=== PATIENT | male | born 1955 | race Caucasian/White ===

== ENCOUNTER 2016-07-25 14:40 | Inpatient (IN) ==
[2016-07-25] MEDS ORDERED: Benzonatate 100 MG CAPSULE PO PRN (17:43)
[2016-07-25] MEDS ORDERED: Ondansetron ODT 4 MG TAB.RAPDIS SL PRN (17:43)
[2016-07-25] MEDS ORDERED: D5% in Water 1,000 ML IV PRN (17:48)
[2016-07-25] MEDS ORDERED: *HR* Dextrose 50 % in Water (Syg) 50 ML SYRINGE IVP PRN (17:48)
[2016-07-25] MEDS ORDERED: Dextrose Gel 15 GM PO PRN ×2 (17:48)
[2016-07-25 18:40] LABS: BUN/Creatinine Ratio 13 (6-26); Blood Urea Nitrogen 27 mg/dL (8-26); INR 1.5; Prothrombin Time 15.8 Seconds (9.4-12.1); eGFR For African Americans 39 (> 60); eGFR For Non-African Americans 32 (> 60)
[2016-07-25] MEDS ORDERED: Insulin LISPRO 300 UNITS/3 ML VIAL SQ ONE (19:03)
[2016-07-25] MEDS: Insulin LISPRO 300 UNITS/3 ML VIAL SQ SCH (19:12)
[2016-07-25] MEDS: *HR* HYDROcodone/Acet 5/325 mg TABLET PO PRN (19:14)
[2016-07-25] MEDS: *HR* Warfarin 1 MG TABLET PO SCH (19:14)
[2016-07-25] MEDS ORDERED: Insulin DETEMIR 100 UNIT/ML per UNIT SQ ONE (21:00)
[2016-07-25] MEDS ORDERED: INSULIN DETEMIR 70 UNIT SQ SCH (21:00)
[2016-07-25] MEDS: Meropenem 1,000 MG in 0.9 % Sodium Chloride Mini Bag 100 ML IVPB SCH (22:10)
[2016-07-25] MEDS: *HR* Enoxaparin 150 MG/ML SYRINGE SQ SCH (22:11)
[2016-07-25] MEDS: Famotidine 20 MG TABLET PO SCH (22:12)
[2016-07-26] MEDS: *HR* HYDROcodone/Acet 5/325 mg TABLET PO PRN ×2 (00:47→06:48)
[2016-07-26 05:37] LABS: INR 1.5; Prothrombin Time 16.6 Seconds (9.4-12.1)
[2016-07-26 05:40] LABS: Activated Partial Thrombo Time 39.9 Seconds (26.0-36.0)
[2016-07-26] MEDS ORDERED: *HR* Enoxaparin 40 MG/0.4 ML SYRINGE SQ SCH (06:00)
[2016-07-26 06:34] LABS: Hematocrit 30.1 % (37.5-50.1); Hemoglobin 9.2 g/dL (12.9-16.9); Mean Corpuscular HGB Conc 30.6 g/dL (31.6-35.5); Mean Corpuscular Hemoglobin 27.8 pg (28.0-33.3); Mean Corpuscular Volume 90.9 fL (83.0-100.0); Nucleated Red Blood Cells 5.7 /100 WBC (0); Red Blood Count 3.31 M/mcL (4.19-5.50); Red Cell Distribution Width 22.5 % (11.5-14.5)
[2016-07-26] MEDS: Insulin LISPRO 300 UNITS/3 ML VIAL SQ SCH ×6 (08:13→17:24)
[2016-07-26] MEDS: *HR* Enoxaparin 150 MG/ML SYRINGE SQ SCH ×2 (08:14→21:03)
[2016-07-26] MEDS: Folic Acid 1 MG TABLET PO SCH (08:15)
[2016-07-26] MEDS: Vitamin B Complex/Vit C/Vit E 1 EACH TABLET PO SCH (08:16)
[2016-07-26] MEDS: Fenofibrate 54 MG TABLET PO SCH (08:16)
[2016-07-26] MEDS: Spironolactone 25 MG TABLET PO SCH (08:16)
[2016-07-26] MEDS: Furosemide 40 MG TABLET PO SCH ×2 (08:16→17:23)
[2016-07-26] MEDS: Famotidine 20 MG TABLET PO SCH ×2 (08:17→21:04)
[2016-07-26 08:19] LABS: Platelet Count 35 K/mcL (140-400)
[2016-07-26] MEDS: Meropenem 1,000 MG in 0.9 % Sodium Chloride Mini Bag 100 ML IVPB SCH ×2 (08:28→21:00)
[2016-07-26] MEDS: Insulin DETEMIR 100 UNIT/ML X5UNITS SQ SCH ×2 (08:29→21:03)
[2016-07-26] MEDS ORDERED: Lisinopril 20 MG TABLET PO SCH (09:00)
[2016-07-26 10:02] LABS: Anisocytosis 1+ (Not Present); Neutrophils # 3.6 K/mcL (1.6-8.9); Platelet Clumps Few (Not Present); Platelet Estimate Decreased (Normal); Poikilocytosis 1+ (Not Present)
[2016-07-26] MEDS: *HR* HYDROcodone/Acet 10/325 mg TABLET PO PRN ×2 (14:07→21:05)
[2016-07-26] MEDS: *HR* Warfarin 1 MG TABLET PO SCH (17:23)
[2016-07-26] MEDS ORDERED: Meropenem 1,000 MG in 0.9 % Sodium Chloride Mini Bag 100 ML IVPB SCH (20:00)
[2016-07-26] MEDS: (Doxepin Hcl [Doxepin Hcl] 10 MG) PO SCH (21:03)
--- NOTE | 2016-07-26 22:50 | Internal Med History&Physical ---
Date of Encounter: 07/26/16 Time of Encounter: 22:48 Assessment and Plan (1) Cellulitis Current visit: Yes Status: Chronic Patient will be admitted for IV antibiotics and to continue wound care management. Qualifiers: Site of cellulitis: extremity Site of cellulitis of extremity: lower extremity Laterality: unspecified laterality Qualified Code(s): L03.119 - Cellulitis of unspecified part of limb Internal Medicine - H&P: HPI Admitted From: Direct Admit Plans for Post Hospital Care: Home History of present illness: Mr. Mina is a 61 year old male sent from wound care clinic Patient was admitted for IV antibiotics, dressing removed today for routine dressing change of left posterior leg wound. Large amount of yellow drainage noted. Wound bed is dark red in color, cleansed with wound cleanser and dressed with gold dust to wound, covered with telfa, maxorb AG to the weeping areas of lateral and anterior left leg, wrapped with kerlix, large exudry to manage drainage, another kerlix wrap and secured with coban. Patient states leg is painful 8/10 with dressing changes only. Dressing of left leg is to be changed daily. Past Med Surg Social Fam HX - Past Medical History Medical history: cancer, diabetes, hypertension Psychiatric history: anxiety - Past Surgical History Surgical History: heart valve replacement, other - Social History Smoking Status: Never smoker Smokeless Tobacco Status: No Alcohol use: rarely Drug use: none - Family History Mother History Unknown: Yes Father History Unknown: Yes Internal Medicine - H&P: Meds Fenofibrate 145 mg PO DAILY 09/03/15 [History] Furosemide [Lasix] 40 mg PO DAILY #0 09/03/15 [History] Insulin DETEMIR [Levemir] 70 unit SQ BID 09/03/15 [History] Loratadine [Loratadine] 10 mg PO DAILY #0 09/03/15 [History] Metoprolol [Lopressor] 25 mg PO DAILY 09/03/15 [History] NovoLOG 20 units SQ TIDAC 09/03/15 [History] Pramipexole [Mirapex] 0.5 mg PO HS 09/03/15 [History] Ranitidine HCl [Zantac] 150 mg PO BID 09/03/15 [History] Tamsulosin HCl [Flomax] 0.4 mg PO DAILY 09/03/15 [History] Allopurinol [Zyloprim 100 MG] 100 mg PO DAILY 07/25/16 [History] B Complex with Vitamin C [[place] with C] 1 each PO DAILY 07/25/16 [History] Folic Acid 1 mg PO DAILY 07/25/16 [History] HYDROcodone/Acet 10/325 mg [[place] 10-325 mg] 1 tab PO Q4HR PRN 07/25/16 [History ] Spironolactone [Aldactone] 25 mg PO DAILY 07/25/16 [History] TraZODone [TraZODone] 50 mg PO HS PRN 07/25/16 [History] Warfarin [Coumadin] 1 mg PO 1800 07/25/16 [History] Aspirin 81 mg PO DAILY 07/26/16 [History] Cholecalciferol (D-3) [Vitamin D] 5,000 unit PO DAILY 07/26/16 [History] Doxepin HCl 10 mg PO HS 07/26/16 [History] Prochlorperazine Maleate 10 mg PO DAILY PRN 07/26/16 [History] Ranitidine HCl [Zantac] 300 mg PO DAILY 07/26/16 [History] Allergies levofloxacin [From Levaquin] Adverse Reaction (Verified 09/03/15 15:02) Diarrhea morphine Adverse Reaction (Verified 09/03/15 15:02) Headache All Systems PM: A 10-system review of systems was performed and is negative for pertinent findings except as documented above in the HPI. - Constitutional Constitutional: no chills, no fever(s) - Cardiovascular Cardiovascular ROS IM: no chest pain, no diaphoresis, no dyspnea, no lightheadedness, no palpitations, no syncope - Respiratory Respiratory: no cough, no dyspnea, no wheezing, no excessive phlegm production - Gastrointestinal Gastrointestinal: no abdominal pain, no diarrhea, no hematemesis, no hematochezia, no melena, no nausea, no vomiting - Musculoskeletal Musculoskeletal ROS IM: arthralgias - Integumentary Integumentary IM: erythema - Constitutional Vitals: Temp Pulse Resp BP Pulse Ox 97.6 F 100 16 94/60 97 07/26/16 18:30 07/26/16 18:30 07/26/16 18:30 07/26/16 18:30 07/26/16 18:30 General appearance: Present: A&O X 3, pleasant - Respiratory Respiratory exam: Present: CTAB. Absent: accessory muscle use, rales, rhonchi, wheezes - Cardiovascular Cardiovascular exam: Present: RRR, +S1, +S2. Absent: diastolic murmur, gallop, rubs, systolic murmur - GI/Abdominal GI/Abdominal exam: Present: normal bowel sounds, soft, no peritoneal signs. Absent: distended, tenderness - Expanded Lower Extremities Exam Foot/Toe exam: Present: erythema - Neurological Exam Neurological exam: Present: CN II-XII intact, oriented X3, no focal deficits. Absent: pronater drift, facial droop, speech deficit Internal Med - H&P Results - Labs CBC & Chem 7: 07/26/16 06:15 07/26/16 06:15 Labs: Short CBC 07/26/16 Range/Units 06:15 WBC 8.6 (4.3-11.1) K/mcL Hgb 9.2 L (12.9-16.9) g/dL Hct 30.1 L (37.5-50.1) % Plt Count 35 L (140-400) K/mcL Neutrophils # 3.6 (1.6-8.9) K/mcL BMP 07/26/16 06:15 Sodium 138 Potassium 4.0 Chloride 104 Carbon Dioxide 22 BUN 26 Creatinine 1.85 H Glucose 88 Calcium 9.0
[2016-07-27 05:44] LABS: INR 1.5; Prothrombin Time 16.4 Seconds (9.4-12.1)
[2016-07-27] MEDS: *HR* HYDROcodone/Acet 10/325 mg TABLET PO PRN ×3 (07:00→20:23)
[2016-07-27] MEDS: Loratadine 10 MG TABLET PO SCH (09:00)
[2016-07-27] MEDS: *HR* Enoxaparin 150 MG/ML SYRINGE SQ SCH ×2 (09:00→20:24)
[2016-07-27] MEDS: Fenofibrate 54 MG TABLET PO SCH (09:01)
[2016-07-27] MEDS: Famotidine 20 MG TABLET PO SCH ×2 (09:02→20:23)
[2016-07-27] MEDS: Spironolactone 25 MG TABLET PO SCH (09:02)
[2016-07-27] MEDS: Vitamin B Complex/Vit C/Vit E 1 EACH TABLET PO SCH (09:02)
[2016-07-27] MEDS: Furosemide 40 MG TABLET PO SCH ×2 (09:02→17:31)
[2016-07-27] MEDS: Folic Acid 1 MG TABLET PO SCH (09:02)
[2016-07-27] MEDS: Cholecalciferol (D-3) 1,000 UNIT TABLET PO SCH (09:02)
[2016-07-27] MEDS: Insulin LISPRO 300 UNITS/3 ML VIAL SQ SCH ×6 (09:03→17:32)
[2016-07-27] MEDS: Meropenem 1,000 MG in 0.9 % Sodium Chloride Mini Bag 100 ML IVPB SCH ×2 (09:04→20:22)
[2016-07-27] MEDS: Insulin DETEMIR 100 UNIT/ML X5UNITS SQ SCH ×2 (09:05→20:23)
--- NOTE | 2016-07-27 15:39 | Internal Med Progress Note ---
Date of Encounter: 07/27/16 Time of Encounter: 15:00 - Assessment and plan (1) Acute kidney injury superimposed on chronic kidney disease Current Visit: No Status: Acute (2) Acute deep venous thrombosis Current Visit: No Status: Acute Assessment and plan: This was diagnosed a while back patient has been treated for this up to this point. And has a venous stasis ulcer and new posterior. It grew 3 different organisms and he needs to be placed in because only IV antibiotics were taken of the problem Qualifiers: DVT location: lower extremity Affected thrombotic vein of extremity: femoral Laterality: left Qualified Code(s): I82.412 - Acute embolism and thrombosis of left femoral vein - Time Spent With Patient less than 15 minutes - Constitutional Vitals: Temp Pulse Resp BP Pulse Ox 98.9 F 97 18 106/64 97 07/27/16 07:39 07/27/16 07:39 07/27/16 07:39 07/27/16 07:39 07/27/16 07:39 General appearance: Present: A&O X 3, pleasant - Head Head exam: Present: atraumatic, normocephalic - Neck Neck exam general surgery: Present: supple, trachea midline. Absent: lymphadenopathy - Respiratory Respiratory exam: Present: CTAB. Absent: accessory muscle use, rales, rhonchi, wheezes - Cardiovascular Cardiovascular exam: Present: RRR, +S1, +S2. Absent: diastolic murmur, gallop, rubs, systolic murmur - GI/Abdominal GI/Abdominal exam: Present: normal bowel sounds, soft, no peritoneal signs. Absent: distended, tenderness Internal Medicine: Result - Labs CBC & Chem 7: 07/26/16 06:15 07/26/16 06:15 Labs: Some increase in creatinine as noted chronically. - ABG Interpretation ABG results: PT/INR, D-dimer PT 16.4 Seconds (9.4-12.1) H 07/27/16 05:38 Consult Discharge Plan - Plan Referrals: Kathrin Gutierrez MD [Primary Care Provider] -
[2016-07-27] MEDS: *HR* Warfarin 1 MG TABLET PO SCH (17:30)
[2016-07-27] MEDS: (Doxepin Hcl [Doxepin Hcl] 10 MG) PO SCH (20:23)
[2016-07-28 05:57] LABS: INR 1.4; Prothrombin Time 15.1 Seconds (9.4-12.1)
[2016-07-28] MEDS: *HR* HYDROcodone/Acet 10/325 mg TABLET PO PRN ×3 (08:29→17:39)
[2016-07-28] MEDS: Fenofibrate 54 MG TABLET PO SCH (08:30)
[2016-07-28] MEDS: Furosemide 40 MG TABLET PO SCH ×2 (08:31→16:52)
[2016-07-28] MEDS: Spironolactone 25 MG TABLET PO SCH (08:31)
[2016-07-28] MEDS: Folic Acid 1 MG TABLET PO SCH (08:31)
[2016-07-28] MEDS: Famotidine 20 MG TABLET PO SCH ×2 (08:32→21:34)
[2016-07-28] MEDS: Loratadine 10 MG TABLET PO SCH (08:32)
[2016-07-28] MEDS: Vitamin B Complex/Vit C/Vit E 1 EACH TABLET PO SCH (08:32)
[2016-07-28] MEDS: Insulin LISPRO 300 UNITS/3 ML VIAL SQ SCH ×6 (08:32→16:52)
[2016-07-28] MEDS: Cholecalciferol (D-3) 1,000 UNIT TABLET PO SCH (08:32)
[2016-07-28] MEDS: Meropenem 1,000 MG in 0.9 % Sodium Chloride Mini Bag 100 ML IVPB SCH ×2 (08:33→21:34)
[2016-07-28] MEDS: *HR* Enoxaparin 150 MG/ML SYRINGE SQ SCH ×2 (08:34→21:33)
[2016-07-28] MEDS: Insulin DETEMIR 100 UNIT/ML X5UNITS SQ SCH ×2 (09:13→21:32)
--- NOTE | 2016-07-28 14:29 | Internal Med Progress Note ---
Date of Encounter: 07/28/16 Time of Encounter: 14:00 - Assessment and plan (1) Acute kidney injury superimposed on chronic kidney disease Current Visit: No Status: Acute Assessment and plan: This seems stable at the moment (2) Acute deep venous thrombosis Current Visit: No Status: Acute Assessment and plan: History of DVT noted Qualifiers: DVT location: lower extremity Affected thrombotic vein of extremity: femoral Laterality: left Qualified Code(s): I82.412 - Acute embolism and thrombosis of left femoral vein (3) Venous stasis dermatitis of left lower extremity Current Visit: Yes Status: Acute Assessment and plan: Currently undergoing treatment by wound care and IV antibiotics. Progressing very nicely and the wound is now fairly superficial along with some cellulitis in topical loss of dermis - Time Spent With Patient less than 15 minutes - Subjective Interval history: The patient has no complaints leg is responding to therapy. - Constitutional Vitals: Temp Pulse Resp BP Pulse Ox 98.0 F 91 16 103/53 94 L 07/28/16 11:49 07/28/16 11:49 07/28/16 11:49 07/28/16 11:49 07/28/16 11:49 General appearance: Present: A&O X 3, pleasant - Head Head exam: Present: atraumatic, normal inspection, normocephalic - Neck Neck exam general surgery: Present: supple, trachea midline. Absent: lymphadenopathy - Respiratory Respiratory exam: Present: CTAB. Absent: accessory muscle use, rales, rhonchi, wheezes - Cardiovascular Cardiovascular exam: Present: RRR, +S1, +S2. Absent: diastolic murmur, gallop, rubs, systolic murmur Internal Medicine: Result - Labs CBC & Chem 7: 07/26/16 06:15 07/26/16 06:15 Labs: Lab looks good some chronic renal failure - ABG Interpretation ABG results: PT/INR, D-dimer PT 15.1 Seconds (9.4-12.1) H 07/28/16 05:15 Consult Discharge Plan - Plan Referrals: Kathrin Gutierrez MD [Primary Care Provider] -
[2016-07-28] MEDS ORDERED: *HR* Warfarin 1 MG TABLET PO SCH (18:00)
[2016-07-28] MEDS: (Doxepin Hcl [Doxepin Hcl] 10 MG) PO SCH (21:32)
[2016-07-29] MEDS: *HR* HYDROcodone/Acet 10/325 mg TABLET PO PRN ×4 (04:40→22:13)
[2016-07-29 06:25] LABS: INR 1.4; Prothrombin Time 15.3 Seconds (9.4-12.1)
[2016-07-29] MEDS: Cholecalciferol (D-3) 1,000 UNIT TABLET PO SCH (08:50)
[2016-07-29] MEDS: Loratadine 10 MG TABLET PO SCH (08:51)
[2016-07-29] MEDS: Famotidine 20 MG TABLET PO SCH ×2 (08:51→20:48)
[2016-07-29] MEDS: Vitamin B Complex/Vit C/Vit E 1 EACH TABLET PO SCH (08:51)
[2016-07-29] MEDS: Folic Acid 1 MG TABLET PO SCH (08:51)
[2016-07-29] MEDS: Fenofibrate 54 MG TABLET PO SCH (08:51)
[2016-07-29] MEDS: Spironolactone 25 MG TABLET PO SCH (08:51)
[2016-07-29] MEDS: Insulin DETEMIR 100 UNIT/ML X5UNITS SQ SCH ×2 (08:52→20:50)
[2016-07-29] MEDS: *HR* Enoxaparin 150 MG/ML SYRINGE SQ SCH ×2 (08:52→20:50)
[2016-07-29] MEDS: Insulin LISPRO 300 UNITS/3 ML VIAL SQ SCH ×6 (08:52→17:27)
[2016-07-29] MEDS: Furosemide 40 MG TABLET PO SCH ×2 (08:52→17:29)
[2016-07-29] MEDS: Meropenem 1,000 MG in 0.9 % Sodium Chloride Mini Bag 100 ML IVPB SCH ×2 (08:53→20:51)
--- NOTE | 2016-07-29 14:32 | Internal Med Progress Note ---
Date of Encounter: 07/29/16 Time of Encounter: 15:00 - Assessment and plan (1) Acute kidney injury superimposed on chronic kidney disease Current Visit: No Status: Acute Assessment and plan: This is just an additional chronic problem (2) Acute deep venous thrombosis Current Visit: No Status: Acute Assessment and plan: History of DVT Qualifiers: DVT location: lower extremity Affected thrombotic vein of extremity: femoral Laterality: left Qualified Code(s): I82.412 - Acute embolism and thrombosis of left femoral vein (3) Venous stasis dermatitis of left lower extremity Current Visit: Yes Status: Acute Assessment and plan: Patient's being seen by wound care and that is why he is here for multiple causative organisms and therefore IV antibiotics were indicated - Time Spent With Patient less than 15 minutes - Subjective Interval history: The patient has no complaints leg is responding to therapy. Will continue IV antibiotic therapy for the weekend. - Constitutional Vitals: Temp Pulse Resp BP Pulse Ox 97.0 F L 92 18 97/67 96 07/29/16 06:00 07/29/16 06:00 07/29/16 06:00 07/29/16 06:00 07/29/16 06:00 General appearance: Present: A&O X 3, pleasant, answers questions appropriately - Head Head exam: Present: atraumatic, normal inspection, normocephalic - Neck Neck exam general surgery: Present: supple, trachea midline. Absent: lymphadenopathy - Respiratory Respiratory exam: Present: CTAB. Absent: accessory muscle use, rales, rhonchi, wheezes - Cardiovascular Cardiovascular exam: Present: RRR, +S1, +S2. Absent: diastolic murmur, gallop, rubs, systolic murmur Internal Medicine: Result - Labs CBC & Chem 7: 07/26/16 06:15 07/26/16 06:15 Labs: Lab looks good - ABG Interpretation ABG results: PT/INR, D-dimer PT 15.3 Seconds (9.4-12.1) H 07/29/16 06:00 Consult Discharge Plan - Plan Referrals: Kathrin Gutierrez MD [Primary Care Provider] -
[2016-07-29] MEDS: *HR* Warfarin 2 MG TABLET PO SCH (17:29)
[2016-07-29] MEDS: (Doxepin Hcl [Doxepin Hcl] 10 MG) PO SCH (20:58)
[2016-07-30] MEDS: *HR* HYDROcodone/Acet 10/325 mg TABLET PO PRN ×2 (05:35→09:44)
[2016-07-30 05:46] LABS: INR 1.5; Prothrombin Time 16.1 Seconds (9.4-12.1)
[2016-07-30] MEDS: Insulin LISPRO 300 UNITS/3 ML VIAL SQ SCH ×6 (09:36→17:46)
[2016-07-30] MEDS: Meropenem 1,000 MG in 0.9 % Sodium Chloride Mini Bag 100 ML IVPB SCH ×2 (09:42→21:23)
[2016-07-30] MEDS: Insulin DETEMIR 100 UNIT/ML X5UNITS SQ SCH ×2 (09:43→21:21)
[2016-07-30] MEDS: Famotidine 20 MG TABLET PO SCH ×2 (09:44→21:22)
[2016-07-30] MEDS: Vitamin B Complex/Vit C/Vit E 1 EACH TABLET PO SCH (09:44)
[2016-07-30] MEDS: Spironolactone 25 MG TABLET PO SCH (09:44)
[2016-07-30] MEDS: Cholecalciferol (D-3) 1,000 UNIT TABLET PO SCH (09:44)
[2016-07-30] MEDS: *HR* Enoxaparin 150 MG/ML SYRINGE SQ SCH ×2 (09:45→21:21)
[2016-07-30] MEDS: Folic Acid 1 MG TABLET PO SCH (09:45)
[2016-07-30] MEDS: Fenofibrate 54 MG TABLET PO SCH (09:45)
[2016-07-30] MEDS: Loratadine 10 MG TABLET PO SCH (09:47)
[2016-07-30] MEDS: Furosemide 40 MG TABLET PO SCH ×2 (09:48→17:42)
--- NOTE | 2016-07-30 13:10 | Internal Med Progress Note ---
Date of Encounter: 07/30/16 Time of Encounter: 12:00 - Assessment and plan (1) Acute kidney injury superimposed on chronic kidney disease Current Visit: No Status: Acute Assessment and plan: Noted no acute change (2) Acute deep venous thrombosis Current Visit: No Status: Acute Assessment and plan: By history Qualifiers: DVT location: lower extremity Affected thrombotic vein of extremity: femoral Laterality: left Qualified Code(s): I82.412 - Acute embolism and thrombosis of left femoral vein (3) Venous stasis dermatitis of left lower extremity Current Visit: Yes Status: Acute Assessment and plan: Main reason for admission and treatment. Patient had need for IV antibiotics - Subjective Interval history: Doing well the goal will be Monday to check the wound wound we do the dressing change and discharge home if satisfactory. Patient has only complaint is Achy All over and He Has Pain Meds Were Ordered for That. - Constitutional Vitals: Temp Pulse Resp BP Pulse Ox 99.3 F 107 18 106/63 92 L 07/29/16 19:00 07/29/16 19:00 07/29/16 06:00 07/29/16 19:00 07/29/16 19:00 General appearance: Present: A&O X 3, pleasant, answers questions appropriately - Head Head exam: Present: atraumatic, normal inspection, normocephalic - Neck Neck exam general surgery: Present: supple, trachea midline. Absent: lymphadenopathy - Respiratory Respiratory exam: Present: CTAB. Absent: accessory muscle use, rales, rhonchi, wheezes - Cardiovascular Cardiovascular exam: Present: RRR, +S1, +S2. Absent: diastolic murmur, gallop, rubs, systolic murmur Internal Medicine: Result - Labs CBC & Chem 7: 07/26/16 06:15 07/26/16 06:15 Labs: Other than some chronic creatinine elevation lab is stable - ABG Interpretation ABG results: PT/INR, D-dimer PT 16.1 Seconds (9.4-12.1) H 07/30/16 05:25 Consult Discharge Plan - Plan Referrals: Kathrin Gutierrez MD [Primary Care Provider] -
[2016-07-30] MEDS: *HR* HYDROcodone/Acet 5/325 mg TABLET PO PRN ×2 (14:29→21:24)
[2016-07-30] MEDS: *HR* Warfarin 2 MG TABLET PO SCH (17:42)
[2016-07-30] MEDS: (Doxepin Hcl [Doxepin Hcl] 10 MG) PO SCH (21:22)
[2016-07-31] MEDS: *HR* HYDROcodone/Acet 5/325 mg TABLET PO PRN ×2 (05:48→18:02)
[2016-07-31 05:49] LABS: INR 1.5; Prothrombin Time 16.2 Seconds (9.4-12.1)
[2016-07-31] MEDS: Insulin LISPRO 300 UNITS/3 ML VIAL SQ SCH ×6 (09:26→17:06)
[2016-07-31] MEDS: Furosemide 40 MG TABLET PO SCH ×2 (09:26→18:02)
[2016-07-31] MEDS: Meropenem 1,000 MG in 0.9 % Sodium Chloride Mini Bag 100 ML IVPB SCH ×2 (09:26→22:17)
[2016-07-31] MEDS: Spironolactone 25 MG TABLET PO SCH (09:27)
[2016-07-31] MEDS: Insulin DETEMIR 100 UNIT/ML X5UNITS SQ SCH ×2 (09:27→22:14)
[2016-07-31] MEDS: Loratadine 10 MG TABLET PO SCH (09:27)
[2016-07-31] MEDS: Folic Acid 1 MG TABLET PO SCH (09:27)
[2016-07-31] MEDS: *HR* Enoxaparin 150 MG/ML SYRINGE SQ SCH ×2 (09:28→22:14)
[2016-07-31] MEDS: Vitamin B Complex/Vit C/Vit E 1 EACH TABLET PO SCH (09:28)
[2016-07-31] MEDS: Famotidine 20 MG TABLET PO SCH ×2 (09:28→22:16)
[2016-07-31] MEDS: Cholecalciferol (D-3) 1,000 UNIT TABLET PO SCH (09:28)
[2016-07-31] MEDS: Fenofibrate 54 MG TABLET PO SCH (09:28)
--- NOTE | 2016-07-31 12:56 | Internal Med Progress Note ---
Date of Encounter: 07/31/16 Time of Encounter: 12:00 - Assessment and plan (1) Acute kidney injury superimposed on chronic kidney disease Current Visit: No Status: Acute Assessment and plan: He had this is stable (2) Acute deep venous thrombosis Current Visit: No Status: Acute Assessment and plan: By history Qualifiers: DVT location: lower extremity Affected thrombotic vein of extremity: femoral Laterality: left Qualified Code(s): I82.412 - Acute embolism and thrombosis of left femoral vein (3) Venous stasis dermatitis of left lower extremity Current Visit: Yes Status: Acute Assessment and plan: Primary reason patient is here. 30 organisms were cultured and IV antibiotics were needed - Time Spent With Patient less than 15 minutes - Subjective Interval history: Care nurses and I will check the wound tomorrow and if it is satisfactory be discharged home. - Constitutional Vitals: Temp Pulse Resp BP Pulse Ox 98.5 F 91 16 124/68 98 07/30/16 19:25 07/30/16 19:25 07/30/16 19:25 07/30/16 19:25 07/30/16 19:25 General appearance: Present: A&O X 3, pleasant, answers questions appropriately - Head Head exam: Present: atraumatic, normal inspection, normocephalic - Neck Neck exam general surgery: Present: supple, trachea midline. Absent: lymphadenopathy - Respiratory Respiratory exam: Present: CTAB. Absent: accessory muscle use, rales, rhonchi, wheezes - Cardiovascular Cardiovascular exam: Present: RRR, +S1, +S2. Absent: diastolic murmur, gallop, rubs, systolic murmur Internal Medicine: Result - Labs CBC & Chem 7: 07/26/16 06:15 07/26/16 06:15 Labs: Really the lab is stable - ABG Interpretation ABG results: PT/INR, D-dimer PT 16.2 Seconds (9.4-12.1) H 07/31/16 05:25 Consult Discharge Plan - Plan Referrals: Kathrin Gutierrez MD [Primary Care Provider] -
[2016-07-31] MEDS: *HR* Warfarin 2 MG TABLET PO SCH (18:02)
[2016-07-31] MEDS: (Doxepin Hcl [Doxepin Hcl] 10 MG) PO SCH (22:15)
[2016-08-01] MEDS: *HR* HYDROcodone/Acet 5/325 mg TABLET PO PRN ×3 (02:15→13:10)
[2016-08-01 05:28] LABS: INR 1.5; Prothrombin Time 16.5 Seconds (9.4-12.1)
[2016-08-01 06:38] VITALS: BP 117/72
[2016-08-01] MEDS: Folic Acid 1 MG TABLET PO SCH (08:28)
[2016-08-01] MEDS: Vitamin B Complex/Vit C/Vit E 1 EACH TABLET PO SCH (08:28)
[2016-08-01] MEDS: Spironolactone 25 MG TABLET PO SCH (08:28)
[2016-08-01] MEDS: Cholecalciferol (D-3) 1,000 UNIT TABLET PO SCH (08:28)
[2016-08-01] MEDS: Famotidine 20 MG TABLET PO SCH (08:28)
[2016-08-01] MEDS: Furosemide 40 MG TABLET PO SCH (08:28)
[2016-08-01] MEDS: Loratadine 10 MG TABLET PO SCH (08:28)
[2016-08-01] MEDS: Fenofibrate 54 MG TABLET PO SCH (08:28)
[2016-08-01] MEDS: Meropenem 1,000 MG in 0.9 % Sodium Chloride Mini Bag 100 ML IVPB SCH (08:29)
[2016-08-01] MEDS: Insulin LISPRO 300 UNITS/3 ML VIAL SQ SCH ×4 (08:29→12:10)
[2016-08-01] MEDS: Insulin DETEMIR 100 UNIT/ML X5UNITS SQ SCH (08:29)
[2016-08-01] MEDS: *HR* Enoxaparin 150 MG/ML SYRINGE SQ SCH (08:30)
--- NOTE | 2016-08-01 15:16 | Discharge Summary ---
Date of Encounter: 08/01/16 Time of Encounter: 14:00 - Discharge Diagnosis (1) Acute kidney injury superimposed on chronic kidney disease Priority: Secondary Status: Acute (2) Acute deep venous thrombosis Priority: Secondary Status: Acute Qualifiers: DVT location: lower extremity Affected thrombotic vein of extremity: femoral Laterality: left Qualified Code(s): I82.412 - Acute embolism and thrombosis of left femoral vein (3) Venous stasis dermatitis of left lower extremity Priority: Primary Status: Acute - Discharge Medications Home Medications: Fenofibrate 145 mg PO DAILY 09/03/15 [History] Furosemide [Lasix] 40 mg PO DAILY #0 09/03/15 [History] Insulin DETEMIR [Levemir] 70 unit SQ BID 09/03/15 [History] Loratadine [Loratadine] 10 mg PO DAILY #0 09/03/15 [History] Metoprolol [Lopressor] 25 mg PO DAILY 09/03/15 [History] NovoLOG 20 units SQ TIDAC 09/03/15 [History] Pramipexole [Mirapex] 0.5 mg PO HS 09/03/15 [History] Ranitidine HCl [Zantac] 150 mg PO BID 09/03/15 [History] Tamsulosin HCl [Flomax] 0.4 mg PO DAILY 09/03/15 [History] Allopurinol [Zyloprim 100 MG] 100 mg PO DAILY 07/25/16 [History] B Complex with Vitamin C [[place] with C] 1 each PO DAILY 07/25/16 [History] Folic Acid 1 mg PO DAILY 07/25/16 [History] HYDROcodone/Acet 10/325 mg [[place] 10-325 mg] 1 tab PO Q4HR PRN 07/25/16 [History ] Spironolactone [Aldactone] 25 mg PO DAILY 07/25/16 [History] TraZODone [TraZODone] 50 mg PO HS PRN 07/25/16 [History] Warfarin [Coumadin] 1 mg PO 1800 07/25/16 [History] Aspirin 81 mg PO DAILY 07/26/16 [History] Cholecalciferol (D-3) [Vitamin D] 5,000 unit PO DAILY 07/26/16 [History] Doxepin HCl 10 mg PO HS 07/26/16 [History] Prochlorperazine Maleate 10 mg PO DAILY PRN 07/26/16 [History] Ranitidine HCl [Zantac] 300 mg PO DAILY 07/26/16 [History] Allergies/Adverse Reactions: Allergies levofloxacin [From Levaquin] Adverse Reaction (Verified 09/03/15 15:02) Diarrhea morphine Adverse Reaction (Verified 09/03/15 15:02) Headache Date of admission: 07/25/16 17:04 Primary care physician: Kathrin Gutierrez Discharging clinician: Abner Piedra Anticipated date of discharge: 08/01/16 - Patient Status Disposition: Home Health Service Condition: Good Functional capacity at discharge: independent ambulation Overall status at discharge: patient is progressing back to baseline - Discharge Instructions Follow Up With: Kathrin Gutierrez MD [Primary Care Provider] - - Diet and Activity Activity: increase activity as tolerated Diet: diabetic diet Interval History: Patient was referred for admission because a culture 3 different organisms were only sensitive to IV antibiotics. Hospital course: Mr. Mina is a 61 year old male Wound is significantly improved and patient will now be discharged and be resuming outpatient wound care and follow-up with his primary care people. Patient also has an INR that slightly low so we are increasing his Coumadin to 3 mg. And will be checked when he sees primary care - Time Spent with Patient Total time spent providing and/or coordinating discharge services: Less than 30 minutes - Constitutional Vitals: Temp Pulse Resp BP Pulse Ox 97.8 F 97 18 117/72 97 08/01/16 06:37 08/01/16 06:37 08/01/16 06:37 08/01/16 06:37 08/01/16 06:37 General appearance: Present: A&O X 3, pleasant, answers questions appropriately - Head Head exam: Present: atraumatic, normal inspection, normocephalic - Neck Neck exam general surgery: Present: supple, trachea midline. Absent: lymphadenopathy - Respiratory Respiratory exam: Present: CTAB. Absent: accessory muscle use, rales, rhonchi, wheezes - Cardiovascular Cardiovascular exam: Present: RRR, +S1, +S2. Absent: diastolic murmur, gallop, rubs, systolic murmur - GI/Abdominal GI/Abdominal exam: Present: normal bowel sounds, soft, no peritoneal signs. Absent: distended, tenderness
--- NOTE | 2016-08-01 15:19 | Physician Discharge Referral ---
Home Health/Hosp Referral Info Transfer to: Home Health Provider in Charge Post Discharge: PCP - Diagnosis (1) Acute kidney injury superimposed on chronic kidney disease Priority: Secondary Status: Acute (2) Acute deep venous thrombosis Priority: Secondary Status: Acute (3) Venous stasis dermatitis of left lower extremity Priority: Primary Status: Acute - Respiratory Orders Smoking Cessation: Smoking cessation has been advised. For more information, call the [employer] Tobacco Quit Line at 6-430-NLFN-NOW. - Dressing/Wound Care Site: Home health can start their care on since he has an appointment here on Monday - Diet/Nutrition Diet/Nutrition Orders: No Concentrated Sweets - Activity Activity Orders: Up ad sathya - Services Needed Following services are medically necessary services: Nursing, Physical Therapy - Transfer Medications Home Medications: Fenofibrate 145 mg PO DAILY 09/03/15 [History] Furosemide [Lasix] 40 mg PO DAILY #0 09/03/15 [History] Insulin DETEMIR [Levemir] 70 unit SQ BID 09/03/15 [History] Loratadine [Loratadine] 10 mg PO DAILY #0 09/03/15 [History] Metoprolol [Lopressor] 25 mg PO DAILY 09/03/15 [History] NovoLOG 20 units SQ TIDAC 09/03/15 [History] Pramipexole [Mirapex] 0.5 mg PO HS 09/03/15 [History] Ranitidine HCl [Zantac] 150 mg PO BID 09/03/15 [History] Tamsulosin HCl [Flomax] 0.4 mg PO DAILY 09/03/15 [History] Allopurinol [Zyloprim 100 MG] 100 mg PO DAILY 07/25/16 [History] B Complex with Vitamin C [[place] with C] 1 each PO DAILY 07/25/16 [History] Folic Acid 1 mg PO DAILY 07/25/16 [History] HYDROcodone/Acet 10/325 mg [[place] 10-325 mg] 1 tab PO Q4HR PRN 07/25/16 [History ] Spironolactone [Aldactone] 25 mg PO DAILY 07/25/16 [History] TraZODone [TraZODone] 50 mg PO HS PRN 07/25/16 [History] Warfarin [Coumadin] 1 mg PO 1800 07/25/16 [History] Aspirin 81 mg PO DAILY 07/26/16 [History] Cholecalciferol (D-3) [Vitamin D] 5,000 unit PO DAILY 07/26/16 [History] Doxepin HCl 10 mg PO HS 07/26/16 [History] Prochlorperazine Maleate 10 mg PO DAILY PRN 07/26/16 [History] Ranitidine HCl [Zantac] 300 mg PO DAILY 07/26/16 [History] Allergies/Adverse Reactions: Allergies levofloxacin [From Levaquin] Adverse Reaction (Verified 09/03/15 15:02) Diarrhea morphine Adverse Reaction (Verified 09/03/15 15:02) Headache Certification: Further, I certify that my clinical findings support that this patient is homebound (i.e. absences from home require considerable and taxing effort and are for medical reasons or judaism services or infrequently or short duration when for other reasons) because: Homebound Reason: Patient requires assistance of a person or device to safely leave home Attestation: My signature below is to certify that this patient is under my care and that I, or nurse practitioner, or a physician's retail sales assistant working with me, has a face-to -face encounter with this patient.
== END 2016-08-01 16:10 | disposition home health service (06) | DRG 638 ==
LOC: INTOOBSV 16:13 → INPGRE 16:13
PROVIDERS: ADMIT Internal Medicine; ATTEND Internal Medicine